=== PATIENT | male | born 2000 | race Caucasian/White ===

== ENCOUNTER 2021-01-05 22:06 | Emergency (ER) | payer OTHER, SELFPAY ==
[2021-01-05 22:06] VITALS: BP 151/86; PULSE 104; RESP 14; TEMP 36.8; O2SAT 100; BMI 21.4
--- NOTE | 2021-01-05 22:23 | EKG12_ITS ---
Test Reason : CP Blood Pressure : / mmHG Vent. Rate : 101 BPM Atrial Rate : 101 BPM P-R Int : 154 ms QRS Dur : 106 ms QT Int : 324 ms P-R-T Axes : 088 081 045 degrees QTc Int : 420 ms Sinus tachycardia Nonspecific ST and T wave abnormality Abnormal ECG Confirmed by ROBI GONZALEZ, YAHIR ([id number]), commercial production editor [employer] ([id number]) on 01/09/2021 7:16:03 AM Referred By: ARTHUR Confirmed By:YAHIR ROSENBAUM MD
--- NOTE | 2021-01-05 22:25 | EDS_ITS ---
HPI History of Present Illness Chief Complaint: Chest Pain Narrative Narrative: Patient is to be 1-year-old male with reported past medical history of Lyme disease. He states that over the past year he has been having intermittent bouts of chest discomfort with shortness of breath. He states that he has been to 2 ERs because of this with no obvious reason for his symptoms. He states over the past week he feels like his symptoms of chest discomfort and shortness of breath have worsened. He denies any family history of cardiac disease at a young age. He denies any recent surgery travel or history of DVT/PE. He denies any illicit drug use or excessive stimulant. He does state that he has been struggling with anxiety but has concerned that the symptoms are more than just a panic attack and therefore comes to the hospital for evaluation [facility] Medical History (Updated 01/05/21 @ 23:[address] Roni Phillips, ) Chest pain Home Medications escitalopram oxalate [Lexapro] 10 mg PO DAILY #40 tab 01/05/21 [Rx Last Taken Unknown] Allergy/AdvReac Type Severity Reaction Status Date / Time No Known Allergies Allergy Verified 01/05/21 22:08 Social History Smoking Status: Light Smoker (<10/day) ROS ROS ED Constitutional Constitutional ED: Denies chills or fever(s) ENT ENT ED: Denies sore throat Cardiovascular Cardiovascular: Reports chest pain Respiratory/Chest Respiratory/Chest: Reports dyspnea; Denies cough Gastrointestinal Gastrointestinal: Denies abdominal pain, diarrhea, nausea or vomiting Genitourinary Genitourinary ED: Denies dysuria Musculoskeletal Musculoskeletal: Denies myalgias Integumentary Denies rash Neurologic Neurologic: Denies headache(s) Psychiatric Psychiatric: Reports anxiety EXAM Physical Exam Const Vital Signs: 01/05/21 22:06 01/05/21 22:44 01/05/21 22:54 Temperature 98.3 F Temperature Source Temporal Pulse Rate 104 H 77 Respiratory Rate 14 14 Respiratory Effort Normal Non-Labored Blood Pressure 151/86 H Blood Pressure Mean 107 Pulse Ox 100 98 Oxygen Delivery Method Room Air Room Air Positive well nourished and well developed General Appearance ED: well developed HEENT Reports moist mucous membranes Eyes PERRL and EOMs intact bilaterally Neck supple Neck Narrative: No nodular goiter on the thyroid noted Chest Wall palpation of chest normal Chest Narrative: No bony deformity or crepitance or reproducible pain of the chest wall noted Resp normal respiratory effort and clear to auscultation bilaterally Cardio regular rhythm Rate: other Other Details: Slightly tachycardic rate with regular rhythm radial pulses are plus 2 out of 4 bilaterally are equal and symmetric GI normal to inspection, nondistended, normoactive bowel sounds, non-tender, non- distended and no masses Auscultation: normoactive bowel sounds Palpation: soft Extremity normal to inspection Extremity Narrative: No asymmetric edema no pitting edema negative Homans' sign bilaterally Neuro oriented x3 and CN's II-XII intact bilaterally Sensorium / Orientation: alert Motor Exam: strength 5/5 throughout Psych Mood & Affect: anxious Skin no rashes or lesions noted MDM MDM MDM Narrative Medical decision making narrative: Patient presented to the ER slightly tachycardic but overall presented with a history most consistent with recurrent anxiety. However as he did report a history of Lyme's disease there is concern he could have Lyme myocarditis so elected to perform a basic work-up. Labs revealed no clinically significant findings and chest x-ray revealed no lung pathology. On reevaluation he is resting comfortably and therefore this time with negative work-up and low risk for cardiovascular disease patient is safe for discharge home Lab Data Attestation: I reviewed the patient's lab results. Labs: Laboratory Results - last 24 hr 01/05/21 01/05/21 01/05/21 22:40 22:40 22:40 WBC 9.4 RBC 4.47 L Hgb 13.7 Hct 40.8 MCV 91.3 MCH 30.6 MCHC 33.6 RDW Std Deviation 39.4 RDW Coeff of Kirti 11.8 Plt Count 323 MPV 10.5 Immature Gran % (Auto) 0.400 Neut % (Auto) 64.7 Lymph % (Auto) 28.3 [place] % (Auto) 6.0 Eos % (Auto) 0.4 Baso % (Auto) 0.2 Absolute Neuts (auto) 6.0 Absolute Lymphs (auto) 2.65 Nucleated RBC % 0 D-Dimer Quant (PE/DVT) <= 0.27 Sodium 138 Potassium 3.2 L Chloride 107 Carbon Dioxide 25.0 Anion Gap 6 BUN 12 Creatinine 0.90 Estim Creat Clear Calc 139.11 Est GFR (MDRD) Af Amer 136 Est GFR (MDRD) Non-Af 112 BUN/Creatinine Ratio 13.3 Glucose 114 H Calcium 8.7 Magnesium 2.1 Troponin I High Sens 7 TSH 3.09 Radiography Diagnostic Testing: Clinical Impression(s) from Imaging Studies Chest X-Ray 01/05/21 22:58 IMPRESSION: Hyperexpanded lungs without other evidence of thoracic abnormality. Electronically Signed: Melquiades Estevez DO at 23:17 EST Tel [phone], Service support , Discharge Plan Triage Chief Complaint: Chest Pain Other Complaint: Anxiety ED Provider: Roni Phillips Dx/Rx/DC Orders Clinical Impression: Anxiety reaction, Acute nonspecific chest pain with low risk of coronary artery disease Instructions: ED Anxiety Reaction Prescriptions: New escitalopram oxalate [Lexapro] 10 mg tablet 10 mg PO DAILY Qty: 40 RF: 0 Primary Care Provider: Care Physician,No Primary Referrals: Ivana Jones DO [STAFF PHYSICIAN] - 1 Week Care Physician,No Primary [Primary Care Provider] - Disposition Disposition: Home, Self Care
[2021-01-05] MEDS: Aspirin 325 MG Tablet PO (22:43)
[2021-01-05 22:54] VITALS: PULSE 77; RESP 14; O2SAT 98
[2021-01-05 22:58] LABS: Absolute Lymphocyte Count 2.65 X10^3/uL (0.83-4.51); Basophil# 0.02 X10^3/uL; Basophil% 0.2 % (0-1); Eosinophil# 0.04 X10^3/uL; Eosinophils% 0.4 % (0-5); Hematocrit 40.8 % (40-54); Hemoglobin 13.7 g/dL (13.0-16.5); Lymphocyte # 2.65 X10^3/ul (0.83-4.51); Lymphocyte % 28.3 % (19-41); Mean Corp Hgb Conc 33.6 g/dL (32-36); Mean Corpuscular Hgb 30.6 pg (27.0-32.0); Mean Corpuscular Volume 91.3 fL (80-94); Mean Platelet Vol. 10.5 fl (6.2-12.0); Monocyte# 0.56 X10^3/uL; NRBC Flagged by Analyzer 0 % (0-5); Neutrophil # 6.04 X10^3/uL (2.7-7.7); Neutrophil % 64.7 % (47-70); Platelet Count 323 K/mm3 (150-450); RBC Distribution Width CV 11.8 % (11.6-14.6); RBC Distribution Width SD 39.4 fl (35.1-43.9); Red Blood Count 4.47 M/mm3 (4.6-6.2); White Blood Count 9.4 K/mm3 (4.4-11.0)
--- NOTE | 2021-01-05 22:58 | RAD_ITS ---
STUDY: X-RAY CHEST REASON FOR EXAM: Male, 20 years old. Has pain. Increased anxiety. Shortness of breath. TECHNIQUE: PA and lateral views of the chest. COMPARISON: None. FINDINGS: The lungs are mildly hyperexpanded. There is no focal mass or infiltrate. No pneumothorax. There is no demonstrated pleural abnormality. Normal size heart. Normal mediastinum and shabana. Normal visualized pulmonary arteries. Normal visualized aortic arch and descending thoracic aorta. Normal visualized thoracic spine. Normal visualized ribs, clavicles, and shoulders. There is no demonstrated abnormality of the visualized soft tissue structures of the upper abdomen. RAD/Chest PA and Lateral IMPRESSION: Hyperexpanded lungs without other evidence of thoracic abnormality. Electronically Signed: Melquiades Estevez DO at 23:17 EST Tel [phone], Service support ,
[2021-01-05 23:13] LABS: D-Dimer Quantitative (DVT/PE) <= 0.27 FEU/ug/m (0.27-0.49)
[2021-01-05 23:27] LABS: Anion Gap 6 (5-15); BUN 12 mg/dL (7-18); BUN/Creat Ratio 13.3 RATIO (10-20); Calcium,Total 8.7 mg/dL (8.5-10.1); Chloride 107 mmol/L (98-107); EST Glomerular Filtration Rate 112 mL/min (>60); Est Glom Filt Rate - Afr Amer 136 mL/min (>60); Estimated Creatinine Clearance 139.11 ml/min; Glucose 114 mg/dL (74-106); Magnesium 2.1 mg/dL (1.6-2.6); Potassium 3.2 mmol/L (3.5-5.1); Sodium Level 138 mmol/L (136-145); Thyroid Stim Hormone (TSH) 3.09 uIU/mL (0.358-3.74); Troponin-I HS 7 pg/mL (3.0-78.0)
[2021-01-05 23:53] VITALS: BP 124/71; PULSE 75; RESP 16; O2SAT 100
== END 2021-01-05 23:54 | disposition home or self-care (01) ==
PROVIDERS: Emergency Provider Emergency Medicine
DX: F41.1 Generalized anxiety disorder (principal); Z79.899 Other long term (current) drug therapy; F17.200 Nicotine dependence, unspecified, uncomplicated
CPT/HCPCS: 71046; 80048; 83735; 84443; 84484; 85025; 85379; 93005; 99285; A4216